=== PATIENT | male | born 1990 | race African-American/Black ===

== ENCOUNTER 2023-02-06 12:38 | Emergency (ER) | payer MEDICAID, OTHER ==
[~2023-02-06] VITALS: Ht 193 cm; Wt 90.9 kg
[2023-02-06 13:55] VITALS: BP 145/88
[2023-02-06] MEDS ORDERED: cefTRIAXone SOD 1,000 MG VL IM ONE (14:00)
[2023-02-06] MEDS ORDERED: AZIT500T66 PO (14:17)
[2023-02-06] MEDS ORDERED: LIDO2SOL23 MT (14:17)
== END 2023-02-06 14:20 | disposition home or self-care (01) ==
LOC: ER 12:38
DX: J03.90 Acute tonsillitis, unspecified (principal); Z79.2 Long term (current) use of antibiotics; Z79.899 Other long term (current) drug therapy
CPT/HCPCS: 96372; 99283; J0696